=== PATIENT | female | born 1975 | race Caucasian/White ===

== ENCOUNTER → 2021-08-01 09:46 | Outpatient (CLI) | payer BC, SELFPAY ==
--- NOTE | ~2021-08-01 | MR_ITS ---
EXAMINATION: MR knee LT wo con DATE: 08/01/2021 10:24 INDICATION: Left knee pain TECHNIQUE: Magnetic resonance imaging (MRI) of the left knee was performed without intravenous contra st. Sequences included coronal PD-weighted FSE, coronal PD-weighted FS FSE, sagittal T2-weighted FSE , sagittal PD-weighted FS FSE and axial PD weighted fat saturated FSE. COMPARISON: None. FINDINGS: Medial compartment: Medial meniscus is normal. Shallow partial thickness chondral fissuring along a small region of the l ateral margin of the anterior weightbearing medial femoral condyle. Remaining cartilage is normal. Lateral compartment: Lateral meniscus is normal. Additional deeper partial thickness chondral fissuring at the central to posterior aspect of the lateral tibial plateau without degenerative subchondral changes. Cartilage al tigre the weightbearing lateral femoral condyle is normal. Patellofemoral compartment: Partial-thickness chondral ulceration and deep fissuring at the patellar apical ridge and immediately adjacent aspect of the medial and lateral patellar facets. There is underlying mild subarticular cys tic change at the inferior aspect of the apical ridge. Trochlear cartilage is normal. Ligaments and tendons: Anterior and posterior cruciate ligaments are normal. The medial collateral ligament and fibular marialuisa ateral ligament complex are normal. The extensor mechanism is normal. The visualized medial and later al hamstring tendons as well as the iliotibial band are normal. Fluid: Physiologic amount of fluid in the joint space. No loose osteochondral bodies identified. Very small Bruno's cyst. Osseous/other: Normal marrow signal aside from the previous noted subarticular cystic change at the patella. No frac ture or pathologic marrow replacing process. IMPRESSION: 1. 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 Reviewed, dictated and finalized at location A. IMPRESSION: 1. 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
== END ==
PROVIDERS: Visit Provider Physician Assistant
DX: M17.12 Unilateral primary osteoarthritis, left knee (principal)
CPT/HCPCS: 73721

== ENCOUNTER 2025-02-09 10:52 | Outpatient (CLI) | payer BC, SELFPAY ==
--- OUTSIDE RECORDS SUMMARY | 2025-02-09 12:27 | XMS_ITS | Clinical Summary ---
Author Organization [facility] Address [address] [place] [address] Care Team Providers Care Community Health Worker Name Role Phone Anna Betts Primary Care Pr ovider Allergies Active Allergy Reactions Criticality Noted Date Comments Sulfa (Sulfonamide Antibiotics) Rash,Stomach upset,Nausea only,Vomiting Medium Medications multivitamin capsule Take 1 capsule by mouth daily Active butalbital-aceta minophen-caffein e (ESGIC) 50-325-40 mg per tablet butalbital-ignacio taminophen-caf feine 50 mg-325 mg-40 mg tablet TAKE 1 TABLET BY MOUTH EVERY 6 TO 8 HOURS NEEDED Active nitrofurantoin monohydrate (MACROBID) 100 mg capsule TAKE 1 CAPSULE BY MOUTH EVERY 12 HOURS FOR 5 DAYS NEEDED 1 Active omeprazole (PriLOSEC) 40 mg capsule Take by mouth daily before breakfast 1 Active clobetasoL (TEMOVATE) 0.05 % ointmentIndicati ons:Granuloma annulare Apply topically 2 (two) times a day as needed (bumps on the fingers until resolved) 30 g 1 1 Active traMADoL (ULTRAM) 50 mg tablet Take by mouth every 6 (six) hours as needed 1 Active polyethylene glycol-electroly jody-vitC (Plenvu) 140-9-5.2 gram powder in packet, sequential Plenvu 140 gram-9 gram-5.2 gram powder packs Active benzonatate (TESSALON) 100 mg capsuleIndicatio ns:Cough Take 1 capsule (100 mg total) by mouth 3 (three) times a day as needed for cough 42 capsule 4 Active spironolactone (ALDACTONE) 25 mg tabletIndication s:Acne vulgaris Take 1 tablet (25 mg total) by mouth 2 (two) times a day 60 tablet 11 4 Active tretinoin (RETIN-A) 0.05 % creamIndications :Acne vulgaris Apply topically nightly To face 45 g 11 4 Active Active Problems Problem Noted Date Diagnosed Date Multiple benign nevi 07/21/2018 Photoaging of skin 07/21/2018 Lentigo 09/17/2016 Notalgia paresthetica 09/17/2016 History of malignant melanoma 09/21/2015 Subcutaneous nodule 12/27/2014 Abnormal uterine bleeding 07/15/2014 Menorrhagia 07/15/2014 Acne 03/01/2014 Skin neoplasm 03/23/2013 Malignant melanoma of lower extremity 03/28/2010 Encounters Date Type Department Care Team Description 11/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 Office Visit [facility] Dermatology [address] [place] [address] [address] [place] [address] Nehal Granger MD Acne rosacea (Primary Dx); History of melanoma from Last 3 Months Surgical History Surgery Date Site/Laterality Comments CHG INSEMINATION OOCYTES In Vitro Fertilization Of Oocytes - (Added by TW Conv) KNEE SURGERY Knee Surgery - (Added by Conv) Medical History Medical History Date Comments Hx Other Medical Cancer melanoma ; Comments: APO 06/03/2014 - Hx Other Medical Lymph node extr action; Comments: APO 06/03/2014 - Hx Other Medical Wide excision; Comments: APO 06/03/2014 - Personal history of malignan t melanoma of skin History of malignant melanom a of skin - (Added by TW Conv) Anemia Cancer (HCC) Migraines Melanoma (HCC) GERD (gastroesophageal reflux disease) Family History Medical History Relation Name Comments Hypertension Brother Hypertension Father Family history of hypertension - (Added by TW Conv) Kidney disease Other Relation Name Status Comments Brother Father Other Social History Tobacco Use Types Packs/Day Years Used Date Smoking Tobacco: Never Smokeless Tobacco: Never Alcohol Use Standard Drinks/Week Comments Yes 0 (1 standard drink = 0.6 oz pur e alcohol) social Comments No Sex and Gender Information Value Date Recorded Sex Assigned at Not on file Legal Sex Female 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 CUTTING MACHINE OPERATOR Gender Identity Female 07/20/2018 9:17 AM CDT Sexual Orientation Not on file Obstetrics History Last Filed Vital Signs Vital Sign Reading Time Taken Comments Blood Pressure 106/71 08/02/2024 2:30 PM CDT Pulse 74 08/02/2024 2:30 PM CDT Temperature 36.8 C (98.2 F) 08/02/2024 2:30 PM CDT Respiratory Rate 20 08/02/2024 2:30 PM CDT Oxygen Saturation 98% 08/02/2024 2:30 PM CDT Inhaled Oxygen Concentration - - Weight 57.6 kg (127 lb) 08/02/2024 2:30 PM CDT Height 167.6 cm (5' 6 ) 08/02/2024 2:30 PM CDT Body Mass Index 20.5 08/02/2024 2:30 PM CDT Plan of Treatment Health Maintenance Due Date Last Done Comments Cervical Cancer Screening 1975 Colon Cancer Screening-Colonoscopy 1975 Depression Screening 1975 Hepatitis C Screening 1975 DTaP/Tdap/Td Vaccine (1 - Tdap) 1986 Hepatitis B Screening 1993 Regular Well Visit/Exam 18-64 1993 Covid-19 Vaccine (2 - season) 2024 02/05/2021 Breast Cancer Screening-Mammogram 02/11/2025 02/12/2024, 12/27/2022, 12/13/2021, Additional history exists Influenza Vaccine (Season Ended) 2025 Pneumococcal vaccine <65 Aged Out No longer eligible based on patient's age to complete this topic Procedures Procedure Name Priority Date/Time Associated Diagnosis Comments SCREENING MAMMOGRAM BILATERAL W EZEQUIEL Schedule Routine, Read Routine (OP Routine) 02/12/2024 3:46 PM CDT Screening mammogram, encounter for from Last 3 Months or Most Recently Relevant to Health Maintenance Results * Screening Mammogram Bilateral W Ezequiel (02/12/2024 3:46 PM CDT) Anatomical Region Laterality Modality Breast Bilateral Mammography Narrative 02/13/2024 11:42 AM CDT Mammogram Technique: Bilateral Digital Breast Tomosynthesis, Bilateral C-view 2D Screening mammogram. Views obtained: bilateral craniocaudal and bilateral mediolateral oblique. Computer Aided Detection was performed. Mammogram Findings: The present examination has been compared to prior imaging studies performed at [facility] on 02/22/2016, 05/19/2017, 06/01/2018, 07/07/2019, 11/16/2020, 12/13/2021 and 12/27/2022. The breasts are heterogeneously dense, which may obscure small masses. There is a focal asymmetry in the middle to posterior of the right breast at 9 o'clock. There is no suspicious abnormality in the left breast. Impression: Focal asymmetry in the right breast requires additional evaluation. Diagnostic mammogram and possible ultrasound of the right breast are recommended at this time. OVERALL FINAL ASSESSMENT: BI-RADS CATEGORY 0: Incomplete: Need additional imaging evaluation. Procedure Note Faye Galaviz MD - 02/13/2024 Mammogram Technique: Bilateral Digital Breast Tomosynthesis, Bilateral C-view 2D Screening mammogram. Views obtained: bilateral craniocaudal and bilateral mediolateral oblique. Computer Aided Detection was performed. Mammogram Findings: The present examination has been compared to prior imaging studies performed at [facility] on 02/22/2016, 05/19/2017,06/01/2018, 07/07/2019, 11/16/2020, 12/13/2021 and 12/27/2022. The breasts are heterogeneously dense, which may obscure small masses. There is a focal asymmetry in the middle to posterior of the rightbreast at 9 o'clock. There is no suspicious abnormality in the left breast. Impression: Focal asymmetry in the right breast requires additional evaluation. Diagnostic mammogram and possible ultrasound of the right breast are recommended at this time. OVERALL FINAL ASSESSMENT: BI-RADS CATEGORY 0: Incomplete: Need additional imaging evaluation. us Self Screening Mammogram IMG MAMMO PROCEDURES Fi nal Result from Last 3 Months or Most Recently Relevant to Health Maintenance [place]ives For more information, please contact: [phone] * Full Code (Latest Code Status on File) Date Activated Date Inactivated Comments 09/30/2018 12:20 PM 09/30/2018 4:02 PM Care Teams Community Health Worker Relationship Specialty Start Date End Date Anna Betts PA PCP - General Physician Flight Operations Specialist 10/17/21
--- OUTSIDE RECORDS SUMMARY | 2025-02-09 12:27 | XMS_ITS | Data Portability ---
Author Organization [facility] Address [address] [place] [address] Care Team Providers Care Bottling Line Operator Name Role Phone ALEXANDRA SQUIRES Primary Care Provider Unavailab le Assessment No assessment recorded. Plan of Treatment Reminders Order Date Submit Date Provider Last Modified By Organization Details Last Modified Time Details Appointments None recorde d. Lab TSH + free T4, serum 2024 025 [facility], [address], [place], [address], 5 13:06:06 T3, free, serum or plasma 2024 025 [facility], [address], [place], [address], 5 13:05:05 unliste d lab - thyroid peroxid ase and thyrogl obulin antibod ies 2024 025 [facility], [address], [place], [address], 5 13:05:12 erythro cyte sedimen tation rate by westerg lucas method 2023 024 [email or web address], [address], [place], [address], 4 09:33:05 C-react mary jo protein , quantit ative, serum or plasma 2023 024 [employer] [facility], [address], [place], [address], 4 09:33:06 WALT (antinu clear antibod ies) screen, serum 2023 024 [email or web address] [facility], [address], [place], [address], 4 14:17:35 rf (rheuma toid factor) , serum 2023 024 [email or web address] [facility], [address], [place], [address], 4 14:17:35 Referral None recorde d. Procedures None recorde d. Surgeries None recorde d. Imaging XR, hand, 3 or more view 2023 024 [email or web address] [facility], [address] [place] [address], [address], [address], 4 09:47:30 Medication Orders None recorde d. Patient TargetsNo targets recorded. Patient InstructionsNo instructions recorded. Reason for Referral None Reported. Results Created Date Observation Date Name Description Value Unit Range Abnormal Flag Note LastModifiedBy Organization Detail LastModifiedTime Result Notes None recorded. Problems Name Problem SNOMED Code Status Onset Date Resolution Date Notes Provider Name and Address Organization Details Recorded Time Multiple joint pain 55018350 Active 2023 YASSINE Guevara Attn: Laurie sanchez,[address] [place], [address], [place] [facility] 4 11:45:56 Pain in right hand 257808429025703 Active 2023 YASSINE Guevara Attn: Laurie sanchez,[address] [place], [address], [place] [facility] 4 11:45:57 Body mass index 20-24 - normal 354054664 Active 2023 YASSINE Guevara Attn: Laurie g,[address], [place], [address], [place] [facility] 4 11:46:24 Problem Notes None recorded. Medical Equipment None Reported. Allergies Allergen ID Allergen Name Allergen Category Reaction Reaction Severity Criticality Documentation Date Start Date Code Code System Note Provider Name and Address Organization Details Recorded Time 689674 Substance with sulfonami de structure and antibacte rial mechanism of action (substanc e) medicatio n Not available Not available Not available 04/27/2024 29004 8003 SNOMED Not Available Not Available Not Available Medications Name Sig Start Date Stop Date Status Note LastModified by Organization Details LastModified Time meloxicam 15 mg tablet Take 1 tablet every day by oral route for 30 days. 2024 active Not Available Not Available Not Avai lable acetamino phen 300 mg-codein e 30 mg tablet TAKE 1 TABLET BY MOUTH FOUR TIMES DAILY NEEDED FOR PAIN 12/14 completed Not Available Not Available Not Available tretinoin 0.05 % topical cream APPLY TOPICALL Y TO FACE EVERY NIGHT active Not Available Not Available No t Available spironola ctone 25 mg tablet Take 2 tablets every day by oral route. active Not Available Not Available No t Available progester one micronize d 100 mg capsule Take 1 capsule every day by oral route for 90 days. active Not Available Not Available No t Available amoxicill in 875 mg-potass ium clavulana te 125 mg tablet TAKE 1 TABLET BY MOUTH TWICE DAILY FOR 10 DAYS 12/14 completed Not Available Not Available Not Available estradiol 0.025 mg/24 hr semiweekl y transderm al patch Apply 1 patch twice a week by transder mal route. 12/14 completed estrogen patch Not Available Not Available Not Available nitrofura ntoin monohydra te/macroc rystals 100 mg capsule TAKE 1 CAPSULE BY MOUTH EVERY 12 HOURS AFTER INTERCOU RSE. MUST ADMINIST ER WITH A MEAL/CHUCK D. active Not Available Not Available No t Available Lyllana 0.05 mg/24 hr transderm al patch APPLY 1 PATCH TRANSDER ANTHONY TWICE A WEEK. APPLY 1 PATCH FOR 3 DAYS ALTERNAT ING WITH 1 PATCH FOR 4 HOURS active Not Available Not Available No t Available Vitals Date Recorded Body height Body mass index (BMI) Body weight Respiratory rate Oxygen saturation Oxygen saturation in Arterial blood by Pulse oximetry Heart rate Systolic blood pressure Diastolic blood pressure Provider Name and Address Organization Details Last Updated DateTime 4 162.56 cm 20.9 kg/m2 89414.4 7 g 20 /min 96 % 96 % 83 /min 100 mm[Hg] 78 mm[Hg] Meme Nunez MA [facility] 4 15:07:07 Date Recorded Body height Body mass index (BMI) Body weight Oxygen saturation Oxygen saturation in Arterial blood by Pulse oximetry Heart rate Systolic blood pressure Diastolic blood pressure Provider Name and Address Organization Details Last Updated DateTime 5 162.56 cm 20.8 kg/m2 99844.6 8 g 98 % 98 % 77 /min 126 mm[Hg] 82 mm[Hg] Meme Nunez MA [facility] 5 12:11:42 Social History Question Answer Notes LastModified by Organizat ion Details LastModified Time Tobacco Smoking Status Former Smoker Meme Nunez MA null, [facility] 04/27/2024 15:14:15 Do You Have An Advance Directive? Yes Information not available 04/27/2024 What Is Your Level Of Alcohol Consumption? Occasional Information not available 04/27/2024 Are You Blind Or Do You Have Difficulty Seeing? No Glasses Information not available 04/27/2024 What Is Your Level Of Caffeine Consumption? Occasional Information not available 04/27/2024 In The 14 Days Before Symptom Onset, Have You Had Close Contact With A Laboratory-confir med COVID-19 While That Case Was Ill? No Information not available 04/27/2024 In The 14 Days Before Symptom Onset, Have You Had Close Contact With A Person Who Is Under Investigation For COVID-19 While That Person Was Ill? No Information not available 04/27/2024 Have You Been To An Area Known To Be High Risk For COVID-19? No Information not available 04/27/2024 Are You Currently Employed? Yes Information not available 04/27/2024 Are You Deaf Or Do You Have Serious Difficulty Hearing? No Trouble Hearing Information not available 04/27/2024 What Type Of Diet Are You Following? REGULAR Information not available 04/27/2024 What Is Your Occupation? Sales Information not available 04/27/2024 Are There Any Guns Present In Your Home? No Information not available 04/27/2024 What Was The Date Of Your Most Recent Tobacco Screening? 12/14/2024 Information not available 12/14/2024 What Is Your Current Pack Years? 10packyears Information not available 04/27/2024 Do You Use Your Seat Belt Or Car Seat Routinely? Yes Information not available 04/27/2024 Do You Have Smoke And Carbon Monoxide Detectors In Your Home? Yes Information not available 04/27/2024 How Much Tobacco Do You Smoke? No Information not available 04/27/2024 Do You Use Any Illicit Or Recreational Drugs? No Information not available 04/27/2024 Do You Use Sunscreen Routinely? Yes Information not available 04/27/2024 Has Tobacco Cessation Counseling Been Provided? Yes Information not available 04/27/2024 On What Date Was Tobacco Cessation Counseling Provided? 12/14/2024 Information not available 12/14/2024 Do You Or Have You Ever Used Any Other Forms Of Tobacco Or Nicotine? No Information not available 04/27/2024 Sex: Female Functional Status Question Answer Note LastModified by Organization D etails LastModified Time Are you able to care for yourself? Yes Information not available 04/27/2024 What is your exercise level? Moderate Information not available 04/27/2024 Mental Status None recorded. Family History Relationship Description Onset Age of this Age Resolved Age Notes LastModified by Organization Details LastModified Time Brother Alcohol abuse [email or web address] Not available 2023 15:13:12 Brother Hypertensive disorder [email or web address] Not available 2023 15:13:30 Father Hypertensive disorder tcarterma Not available 2023 15:13:30 Father Kidney disease tcarterma Not available 2023 15:13:35 Mother Migraine [email or web address] Not availabl e 04/27/2024 15:13:41 Mother Osteoporosis [email or web address] Not avai lable 04/27/2024 15:13:47 Medical History Condition Response Coronary Artery Disease N Other N High Blood Pressure N Atrial Fibrillation N Thyroid Problems N Kidney or Bladder Problems N GI Problems N Depression N COPD N Blood Clots N Skin Problems N Anemia Y Heart Attack ([place]) N Anxiety Disorder N Diabetes N Muscle, Joint, or Bone Problems N Seizures/Epilepsy N Acid Reflux (GERD) Y Cancer Y Stroke N Asthma N Allergies N High Cholesterol N Hepatitis N Liver Disease N Headaches Y Osteoporosis N Heart Failure N Gynecological History Statement/Question Response Menses Monthly N Current Control Method Other Obstetrics History GPAL:G 3 P 3 0 0 3 Type Value Full Term 3 Induced 0 Spontaneous 0 Premature 0 Living 3 Total 3 Immunizations Vaccine Type Date Status Note Provider Nam e and Address Organization Details Recorded Time COVID-19, mRNA, LNP-S, PF, 30 mcg/0.3 mL dose 10/23/2021 completed SOCORRO Martel, [place] - [facility] 12/14/2024 12:09:58 COVID-19 vaccine, vector-nr, rS-Ad26, PF, 0.5 mL 02/03/2021 completed SOCORRO Martel, [place] [facility] 12/14/2024 12:09:58 COVID-19 vaccine, vector-nr, rS-Ad26, PF, 0.5 mL 02/05/2021 completed SOCORRO Martel, [place] [facility] 12/14/2024 12:09:58 Past Encounters Encounter ID Performer Location Encounter Start Date Encounter Closed Date Diagnosis/Indication Diagnosis SNOMED-CT Code Diagnosis ICD10 Code Diagnosis Note [id number] YASSINE Guevara [facility] [address] [place] [address] 04/27/2024 14:53:54 04/27/2024 15:36:06 Pain in right hand 4062438159 32927 M79.641 Check baseline x-ray of right hand Multiple joint pain 3567 8005 M25.50 Screening sed rateC-reac tive protein, WALT multiplex with reflex cascade, and diagnostic rheumatoid arthritis panel are ordered. Adult heal th examination 096921205 Z00.01 Annual wellness exam completed with symptoms that were positive on review of systems addressed below. Body mass index 20-24 - normal 304985469 Z68.20 [id number] YASSINE Guevara [facility] [place] [address] [place] [address] 12/14/2024 11:56:46 12/14/2024 13:00:25 Body mass index 20-24 - normal 677748166 Z68.20 BMI is 20.8 Thyroid fu nction tests abnormal 897869621 R94.6 Repeat thyroid function testing to include TSH, T4 free, free T3 and thyroid antibodies . Health Concerns Section Related Observation LastModified by Organization Detai ls LastModified Time None Recorded Concern Status LastModified by Organization Details LastModified Time None Recorded Advance Directives Directive Y: Payers Encounter Date Sequence Insurance Name Policy Number Policy Wright Covered Member ID Wright Member ID Guarantor Name 04/27/2024 1 [place] [id number] [facility] [id number] [facility] 12/14/2024 1 [place] [id number] [facility] [id number] [facility] Notes Date Note Type Note Provider Name and Address Organization Details Recorded Time 04/27/2024 text/html Patient is here for annual wellness exam. Patient of provider from last office location. Patient would like to have evaluation for rheumatoid arthritis as her mother was just diagnosed. Patient does have some pain in her right hand and some generalized joint pain throughout. No redness or warmth, full range of motion no other c/o. YASSINE Guevara Attn: Accounting[address] [facility], [place], [address], [facility] 05/09/2024 11:46:47 12/14/2024 text/html Patient is here to have more detailed evaluation ordered on her thyroid. Patient Educator labs in her TSH was slightly elevated. She would just like to have additional labs ordered YASSINE Guevara Attn: Accounting[address] [facility], [place], [address], [facility] 01/01/2025 23:11:56 OBGyn Episode No OBEpisode recorded.
--- OUTSIDE RECORDS SUMMARY | 2025-02-09 12:27 | XMS_ITS ---
Author Organization [facility] Address [address] [place] [address] Care Team Providers Care Burnisher And Bumper Name Role Phone Anna Betts Primary Care Pr ovider Active Problems Problem Noted Date Diagnosed Date Multiple benign nevi 07/21/2018 Photoaging of skin 07/21/2018 Lentigo 09/17/2016 Notalgia paresthetica 09/17/2016 History of malignant melanoma 09/21/2015 Subcutaneous nodule 12/27/2014 Abnormal uterine bleeding 07/15/2014 Menorrhagia 07/15/2014 Acne 03/01/2014 Skin neoplasm 03/23/2013 Malignant melanoma of lower extremity 03/28/2010 Current Treatment and Therapy Plans No current plan information found. Past Treatment and Therapy Plans No past plan information found. Lifetime Dose Tracking * Chemical Lifetime Dose Automatic Entry Manual Entr y Fluoro Time 0.5 minutes 0.5 minutes 0 minutes DLP 174 mGycm 174 mGycm 0 mGycm
--- OUTSIDE RECORDS SUMMARY | 2025-02-09 12:27 | XMS_ITS | Referral Summary ---
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 Social History Tobacco Use Types Packs/Day Years Used Date Smoking Tobacco: Never Smokeless Tobacco: Never Alcohol Use Standard Drinks/Week Comments Yes 0 (1 standard drink = 0.6 oz pur e alcohol) social Comments No Sex and Gender Information Value Date Recorded Sex Assigned at Not on file Legal Sex Female 7:37 PM SENIOR POLICY ASSOCIATE Gender Identity Female 07/20/2018 9:17 AM CDT Sexual Orientation Not on file Last Filed Vital Signs Vital Sign Reading [...] 08/02/2024 2:30 PM CDT Plan of Treatment Not on file Procedures Procedure Name Priority Date/Time Associated Diagnosis Comments SCREENING MAMMOGRAM BILATERAL W EZEQUIEL Schedule Routine, Read Routine (OP Routine) 02/12/2024 3:46 PM CDT Screening mammogram, encounter for from Last 3 Months or Most Recently Relevant to Health Maintenance Results * Screening Mammogram Bilateral W Ezequeil (02/12/2024 3:46 PM CDT) Anatomical Region Laterality Modality Breast Bilateral Mammography Narrative 02/13/2024 11:42 AM CDT Mammogram Technique: Bilateral Digital Breast Tomosynthesis, Bilateral C-view 2D Screening mammogram. Views obtained: bilateral craniocaudal and bilateral mediolateral oblique. Computer Aided Detection was performed. Mammogram Findings: The present examination has been compared to prior imaging studies performed at [facility] on 02/22/2016, 05/19/2017, 06/01/2018, 07/07/2019, 11/16/2020, [...] compared to prior imaging studies performed at [facility] on 02/22/2016, 05/19/2017,06/01/2018, 07/07/2019, 11/16/2020, 12/13/2021 [...] Health Maintenance Insurance [place] Advance Directives For more information, please contact: [phone] * Full Code (Latest Code Status on File) Date Activated Date Inactivated Comments 09/30/2018 12:20 PM 09/30/2018 4:02 PM Care Teams Big Data Lead Relationship Specialty Start Date End Date Anna Betts PA PCP - General Physician Emergency Room Specialist 10/17/21
== END 2025-02-09 10:53 | disposition home or self-care (01) ==
LOC: ANHAUDIO 10:53
PROVIDERS: PCP Physician Assistant; Visit Provider Physician Assistant
DX: H90.3 Sensorineural hearing loss, bilateral (principal)
CPT/HCPCS: 92557; 92567